=== PATIENT | female | born 1970 ===

== ENCOUNTER 2018-09-25 17:13 | Emergency (ER) | payer MEDICAID ==
[2018-09-25 17:32] VITALS: BP 140/96; PULSE 76; RESP 20; TEMP 97.4; O2SAT 97
[2018-09-25] MEDS ORDERED: Naproxen 550 mg Tab PO STA (18:07)
--- NOTE | 2018-09-25 18:13 | C.PDOC ---
History Of Present Illness 48 y/o female presents to the ED for evaluation of burn. Patient states hot water spilled on her left forearm prior to arrival. Denies any fever or other associated symptoms. Time Seen by Provider: 09/25/18 17:57 Chief Complaint (Nursing): Burn History Per: Patient History/Exam Limitations: no limitations Injury Occurred (Timing): Just Before Arrival Type Of Burn (Context): Hot Liquid Past Medical History Reviewed: Historical Data, Nursing Documentation, Vital Signs Vital Signs: Last Vital Signs Temp 97.4 F L 09/25/18 17:31 Pulse 76 09/25/18 17:31 Resp 20 09/25/18 17:31 BP 140/96 H 09/25/18 17:31 Pulse Ox 97 09/25/18 17:31 - Medical History PMH: Seizures (?. Taken off Keppra by PMD last year due to lack of seizures) Surgical History: Cholecystectomy - [facility] Procedures ESOPHAGOGASTRODUODENOSCOPY [EGD] W/CLOSED BIOPSY (03/25/13) Family History: States: Unknown Family Hx - Social History Hx Alcohol Use: No Hx Substance Use: No - Immunization History Hx Tetanus Toxoid Vaccination: No Hx Influenza Vaccination: No Hx Pneumococcal Vaccination: No Review Of Systems Constitutional: Negative for: Fever, Chills Musculoskeletal: Positive for: Hand Pain Skin: Positive for: Other (Burn to left forearm) Neurological: Negative for: Weakness, Numbness Physical Exam - Physical Exam Appears: Non-toxic, No Acute Distress Skin: Warm, Other (1st degree burn to the distal ulnar aspect of left forearm, with some splash laura to the dorsum of left hand; Skin intact, no blisters) Head: Atraumatic, Normacephalic Eye(s): bilateral: Normal Inspection, PERRL, EOMI Oral Mucosa: Moist Chest: Symmetrical Respiratory: No Accessory Muscle Use, Other (NARD) Extremity: Normal ROM, No Deformity, No Swelling Pulses: Left Radial: Normal, Right Radial: Normal Neurological/Psych: Oriented x3, Normal Speech ED Course And Treatment O2 Sat by Pulse Oximetry: 97 (RA) Pulse Ox Interpretation: Normal Medical Decision Making Medical Decision Making: Impression: 1st degree burn Plan: - Naproxen 550 mg PO - Lidocaine applied topically - Wound dressed Disposition Counseled Patient/Family Regarding: Diagnosis, Need For Followup, Rx Given - Disposition Referrals: YOUR,PMD [Other] Disposition: HOME/ ROUTINE Disposition Time: 18:13 Condition: IMPROVED Additional Instructions: TOPICAL ALOE VERA DIRECTED. MOTRIN NEEDED. Instructions: Skin Laura (DC) Forms: [employer] (Hungarian) - Clinical Impression Clinical Impression: First degree burn of forearm - Scribe Statement The provider has reviewed the documentation as recorded by the Landon Pereyra Provider Attestation: All medical record entries made by the Landon were at my direction and personally dictated by me. I have reviewed the chart and agree that the record accurately reflects my personal performance of the history, physical exam, medical decision making, and the department course for this patient. I have also personally directed, reviewed, and agree with the discharge instructions and disposition.
[2018-09-25] MEDS ORDERED: Naproxen 550 mg Tab PO ONE (18:21)
== END 2018-09-25 18:26 | disposition home or self-care (01) ==
LOC: C.ER 17:13
DX: T22.112A Burn of first degree of left forearm, initial encounter (principal); X11.8XXA Contact with other hot tap-water, initial encounter